=== PATIENT | female | born 1995 | race Caucasian/White ===

== ENCOUNTER 2016-11-29 18:21 | Emergency (ER) | payer SELFPAY ==
[~2016-11-29] VITALS: Ht 162.6 cm; Wt 71.3 kg
[2016-11-29 18:51] VITALS: BP 113/63
== END 2016-11-29 20:38 | disposition left against medical advice (07) ==
LOC: EMS 18:33
DX: R42 Dizziness and giddiness (principal); H93.13 Tinnitus, bilateral; K21.9 Gastro-esophageal reflux disease without esophagitis; Z53.21 Procedure and treatment not carried out due to patient leaving prior to being seen by health care provider